=== PATIENT | male | born 1995 | race Caucasian/White ===

== ENCOUNTER 2017-05-15 22:10 | Emergency (ER) | payer BC ==
[2017-05-15 22:23] VITALS: TEMP 98.4
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
[2017-05-15 23:33] VITALS: BP 120/63; PULSE 78; RESP 16; O2SAT 97
== END 2017-05-15 23:33 | disposition home or self-care (01) ==
DX: S40.022A Contusion of left upper arm, initial encounter (principal); F10.920 Alcohol use, unspecified with intoxication, uncomplicated; F17.200 Nicotine dependence, unspecified, uncomplicated; V18.2XXA Unspecified pedal cyclist injured in noncollision transport accident in nontraffic accident, initial encounter
CPT/HCPCS: A4565

== ENCOUNTER 2017-10-23 01:02 | Emergency (ER) | payer BC ==
[2017-10-23 01:09] VITALS: BP 139/90; PULSE 104; RESP 20; TEMP 97.5; O2SAT 96
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
[2017-10-23] MEDS ORDERED: CEPHALEXIN 500MG PREPACK#4 BTL TAKEHOME ONE (01:35)
[2017-10-23] MEDS ORDERED: CEPHALEXIN 500 MG CAP PO ONE (01:35)
== END 2017-10-23 01:49 | disposition home or self-care (01) ==
DX: L03.113 Cellulitis of right upper limb (principal)